=== PATIENT | female | born 1990 | race Caucasian/White ===

== ENCOUNTER 2018-11-23 01:33 | Inpatient (IN) | payer BC, OTHER ==
[~2018-11-23] VITALS: Ht 170.2 cm; Wt 79.9 kg
[2018-11-23] VITALS (7 sets, daily range): BP systolic 95–131; BP diastolic 56–68
[~2018-11-23 01:33] MED LIST: IBUP-1223 PO; OXYC-302 PO
[2018-11-23] MEDS ORDERED: OXYTOCIN 30U/ 0.9% NaCL 500ML 500 ML ONE (01:42)
[2018-11-23 02:11] LABS: MEAN CORPUSCULAR HEMOGLOBIN 28.2 pg (27.0-34.8); MEAN CORPUSCULAR HGB CONC 32.9 g/dL (32.4-35.8); MEAN CORPUSCULAR VOLUME 85.7 fL (80-100); MEAN PLATELET VOLUME 9.5 fL (7.4-10.4); PLATELET COUNT 225 x10^3/uL (130-400); RED BLOOD COUNT 4.27 x10^6/uL (3.82-5.3); RED CELL DISTRIBUTION WIDTH 15.5 % (9.6-15.2)
[2018-11-23 02:17] LABS: AMPHETAMINE SCREEN, URINE Negative (Negative); BARBITURATE SCREEN, URINE Negative (Negative); BENZODIAZEPINE SCREEN, URINE Negative (Negative); CANNABINOID SCREEN, URINE Negative (Negative); COCAINE SCREEN, URINE Negative (Negative); METHADONE SCREEN, URINE Negative (Negative); OPIATE SCREEN, URINE Negative (Negative)
[2018-11-23] MEDS ORDERED: MEPERIDINE/PF 100 MG/ML ONE (02:21)
[2018-11-23 02:29] LABS: BASOPHILS # (AUTO) 0.06 x10^3/uL (0-0.1); BASOPHILS % (AUTO) 0 % (0-1); EOSINOPHILS # (AUTO) 0.01 x10^3/uL (0-0.4); EOSINOPHILS % (AUTO) 0 % (1-7); LYMPHOCYTES # (AUTO) 1.58 x10^3/uL (1-3.4); LYMPHOCYTES % (AUTO) 6 % (22-44); MD SCAN; MONOCYTES # (AUTO) 0.66 x10^3/uL (0.2-0.8); MONOCYTES % (AUTO) 3 % (2-9); NEUTROPHILS # (AUTO) 23.48 x10^3/uL (1.8-6.8); NEUTROPHILS % (AUTO) 91 % (42-75)
[2018-11-23 02:36] LABS: INTERNATIONAL NORMALIZED RATIO 0.94 (0.93-1.1); PROTHROMBIN TIME 9.9 Seconds (9.6-11.5)
[2018-11-23] MEDS ORDERED: FENTANYL PF 100 MCG/2ML ONE ×2 (02:44→03:21)
[2018-11-23] MEDS ORDERED: MIDAZOLAM 1 MG/ML, 2ML ONE (02:44)
[2018-11-23] MEDS ORDERED: LIDOCAINE-MPF 2% ,5ML ONE (02:44)
[2018-11-23] MEDS ORDERED: SUCCINYLCHOLINE 20 MG/ML, 10ML ONE (02:44)
[2018-11-23] MEDS ORDERED: PROPOFOL 10 MG/ML, 20ML ONE (02:44)
[2018-11-23] MEDS ORDERED: ROCURONIUM 10MG/ML,5ML ONE (02:45)
[2018-11-23] MEDS ORDERED: METOCLOPRAMIDE 5 MG/ML, 2ML ONE ×2 (02:48→02:52)
[2018-11-23] MEDS ORDERED: DEXAMETHASONE 4 MG/ML, 1ML ONE ×2 (02:48)
[2018-11-23] MEDS ORDERED: ONDANSETRON 2MG/ML, 2ML ONE (02:48)
[2018-11-23] MEDS ORDERED: METHYLERGONOVINE 0.2 MG/ML IM ONE (02:51)
[2018-11-23] MEDS ORDERED: OXYTOCIN 10 UNITS/ML, 1ML ONE (02:52)
[2018-11-23] MEDS ORDERED: MEPERIDINE/PF 100 MG/ML IM PRN (03:00)
[2018-11-23] MEDS ORDERED: PHENYLEPHRINE 10 MG/ML ONE (03:04)
[2018-11-23] MEDS ORDERED: CEFAZOLIN 1,000 MG ONE ×2 (03:06)
[2018-11-23] MEDS ORDERED: OXYTOCIN 30U/ 0.9% NaCL 500ML 500 ML IV SCH (03:36)
[2018-11-23] MEDS ORDERED: OXYcodone 5 MG/5 ML ORAL.SOL UDC PO PRN (04:00)
[2018-11-23] MEDS ORDERED: DIPHENHYDRAMINE 50 MG/ML, 1ML IVPush PRN (04:00)
[2018-11-23] MEDS ORDERED: PROMETHAZINE 25 MG/ML, 1ML IV PRN (04:00)
[2018-11-23] MEDS ORDERED: IBUPROFEN 600 MG TABLET PO PRN (04:00)
[2018-11-23] MEDS ORDERED: MORPHINE SULFATE 4 MG/ML, 1ML IVPush PRN (04:00)
[2018-11-23] MEDS ORDERED: HYDROcodone/APAP 5/325 TABLET PO PRN ×2 (04:00)
[2018-11-23] MEDS ORDERED: DOCUSATE 100 MG CAPSULE PO PRN (04:00)
[2018-11-23] MEDS ORDERED: ONDANSETRON 2MG/ML, 2ML IV PRN ×2 (04:00)
[2018-11-23] MEDS ORDERED: EPHEDRINE 50 MG/ML, 1ML IVPush PRN (04:00)
[2018-11-23] MEDS ORDERED: FENTANYL PF 100 MCG/2ML IV PRN (04:00)
[2018-11-23] MEDS ORDERED: METOCLOPRAMIDE 5 MG/ML, 2ML IV PRN (04:00)
[2018-11-23] MEDS ORDERED: ACETAMINOPHEN 325 MG TABLET PO PRN (04:00)
[2018-11-23] MEDS ORDERED: CARBOPROST TROMETHAMINE 250 MCG/ML, 1ML IM PRN (04:00)
[2018-11-23] MEDS ORDERED: METHYLERGONOVINE 0.2 MG/ML IM PRN (04:00)
[2018-11-23 04:24] LABS: INTERNATIONAL NORMALIZED RATIO 0.99 (0.93-1.1); PROTHROMBIN TIME 10.4 Seconds (9.6-11.5)
[2018-11-23 04:39] LABS: MEAN CORPUSCULAR HEMOGLOBIN 27.9 pg (27.0-34.8); MEAN CORPUSCULAR HGB CONC 32.4 g/dL (32.4-35.8); MEAN CORPUSCULAR VOLUME 86.2 fL (80-100); MEAN PLATELET VOLUME 9.9 fL (7.4-10.4); PLATELET COUNT 183 x10^3/uL (130-400); RED BLOOD COUNT 3.29 x10^6/uL (3.82-5.3); RED CELL DISTRIBUTION WIDTH 15.5 % (9.6-15.2)
[2018-11-23 05:45] LABS: BASOPHILS # (AUTO) 0.01 x10^3/uL (0-0.1); BASOPHILS % (AUTO) 0 % (0-1); EOSINOPHILS # (AUTO) 0.01 x10^3/uL (0-0.4); EOSINOPHILS % (AUTO) 0 % (1-7); LYMPHOCYTES # (AUTO) 1.73 x10^3/uL (1-3.4); LYMPHOCYTES % (AUTO) 7 % (22-44); MD SCAN; MONOCYTES # (AUTO) 0.57 x10^3/uL (0.2-0.8); MONOCYTES % (AUTO) 2 % (2-9); NEUTROPHILS % (AUTO) 91 % (42-75)
[2018-11-23] MEDS ORDERED: CEFAZOLIN PMX 1GM/50ML 50 ML ONE (07:26)
[2018-11-23] MEDS: CEFAZOLIN PMX 1GM/50ML 50 ML IV SCH ×3 (07:53→21:56)
[2018-11-23 07:57] LABS: MEAN CORPUSCULAR HEMOGLOBIN 27.4 pg (27.0-34.8); MEAN CORPUSCULAR HGB CONC 32.2 g/dL (32.4-35.8); MEAN CORPUSCULAR VOLUME 85.1 fL (80-100); MEAN PLATELET VOLUME 9.1 fL (7.4-10.4); PLATELET COUNT 164 x10^3/uL (130-400); RED BLOOD COUNT 2.82 x10^6/uL (3.82-5.3); RED CELL DISTRIBUTION WIDTH 15.3 % (9.6-15.2)
[2018-11-23 08:06] LABS: BASOPHILS # (AUTO) 0.02 x10^3/uL (0-0.1); BASOPHILS % (AUTO) 0 % (0-1); EOSINOPHILS % (AUTO) 0 % (1-7); LYMPHOCYTES # (AUTO) 1.32 x10^3/uL (1-3.4); LYMPHOCYTES % (AUTO) 6 % (22-44); MD SCAN; MONOCYTES # (AUTO) 0.28 x10^3/uL (0.2-0.8); MONOCYTES % (AUTO) 1 % (2-9); NEUTROPHILS # (AUTO) 19.74 x10^3/uL (1.8-6.8); NEUTROPHILS % (AUTO) 92 % (42-75)
[2018-11-23] MEDS: PRENATAL VIT/IRON/FA 1 EACH TABLET PO SCH (09:00)
[2018-11-23] MEDS ORDERED: CEFAZOLIN 1,000 MG IM SCH (09:00)
[2018-11-23 14:46] LABS: MEAN CORPUSCULAR HEMOGLOBIN 27.4 pg (27.0-34.8); MEAN CORPUSCULAR HGB CONC 31.9 g/dL (32.4-35.8); MEAN CORPUSCULAR VOLUME 85.8 fL (80-100); PLATELET COUNT 161 x10^3/uL (130-400); RED BLOOD COUNT 2.48 x10^6/uL (3.82-5.3); RED CELL DISTRIBUTION WIDTH 15.5 % (9.6-15.2)
[2018-11-23 14:47] LABS: MD YES
[2018-11-23 15:47] LABS: BAND#(MANUAL) 0.94 x10^3/uL; BANDS%(MANUAL) 5 % (0-7); LYMPH#(MANUAL) 1.32 x10^3/uL (1-3.4); LYMPHS% (MANUAL) 7 % (22-44); MONOS#(MANUAL) 0.56 x10^3/uL (0.3-2.7); MONOS% (MANUAL) 3 % (2-9); SEG#(MANUAL) 15.98 x10^3/uL (1.8-6.8); SEGS% (MANUAL) 85 % (42-75)
[2018-11-23 15:48] LABS: <RBC MORPHOLOGY> NORMAL
[2018-11-23 15:49] LABS: <PLATELET ESTIMATE> ADEQUATE; <PLT MORPHOLOGY> NORMAL PLT MORPH; ANISOCYTOSIS 1+; POLYCHROMASIA 1+; ROULEAUX 1+
[2018-11-23 19:03] LABS: MD YES; MEAN CORPUSCULAR HEMOGLOBIN 28.8 pg (27.0-34.8); MEAN CORPUSCULAR HGB CONC 33.1 g/dL (32.4-35.8); MEAN CORPUSCULAR VOLUME 86.8 fL (80-100); MEAN PLATELET VOLUME 9.4 fL (7.4-10.4); PLATELET COUNT 168 x10^3/uL (130-400); RED BLOOD COUNT 2.38 x10^6/uL (3.82-5.3)
[2018-11-23 19:26] LABS: BAND#(MANUAL) 0.54 x10^3/uL; BANDS%(MANUAL) 3 % (0-7); LYMPH#(MANUAL) 2.17 x10^3/uL (1-3.4); LYMPHS% (MANUAL) 12 % (22-44); MONOS#(MANUAL) 0.91 x10^3/uL (0.3-2.7); MONOS% (MANUAL) 5 % (2-9); SEG#(MANUAL) 14.48 x10^3/uL (1.8-6.8); SEGS% (MANUAL) 80 % (42-75)
[2018-11-23 19:29] LABS: <PLATELET ESTIMATE> ADEQUATE; <PLT MORPHOLOGY> NORMAL PLT MORPH; ANISOCYTOSIS 1+; POLYCHROMASIA 1+
[2018-11-24] MEDS: CEFAZOLIN PMX 1GM/50ML 50 ML IV SCH ×2 (04:04→05:00)
[2018-11-24 04:23] LABS: MEAN CORPUSCULAR HEMOGLOBIN 28.4 pg (27.0-34.8); MEAN CORPUSCULAR HGB CONC 32.9 g/dL (32.4-35.8); MEAN CORPUSCULAR VOLUME 86.4 fL (80-100); MEAN PLATELET VOLUME 8.9 fL (7.4-10.4); PLATELET COUNT 142 x10^3/uL (130-400); RED BLOOD COUNT 2.86 x10^6/uL (3.82-5.3); RED CELL DISTRIBUTION WIDTH 15.6 % (9.6-15.2)
[2018-11-24 05:56] LABS: BASOPHILS # (AUTO) 0.18 x10^3/uL (0-0.1); BASOPHILS % (AUTO) 1 % (0-1); EOSINOPHILS # (AUTO) 0.03 x10^3/uL (0-0.4); EOSINOPHILS % (AUTO) 0 % (1-7); LYMPHOCYTES # (AUTO) 2.79 x10^3/uL (1-3.4); LYMPHOCYTES % (AUTO) 17 % (22-44); MD SCAN; MONOCYTES # (AUTO) 1.12 x10^3/uL (0.2-0.8); MONOCYTES % (AUTO) 7 % (2-9); NEUTROPHILS # (AUTO) 12.51 x10^3/uL (1.8-6.8); NEUTROPHILS % (AUTO) 75 % (42-75)
[2018-11-24 07:33] VITALS: BP 119/72
[2018-11-24] MEDS ORDERED: PRENATAL VIT/IRON/FA 1 EACH TABLET ONE (08:38)
[2018-11-24] MEDS: PRENATAL VIT/IRON/FA 1 EACH TABLET PO SCH (08:39)
== END 2018-11-24 10:55 | disposition home or self-care (01) | DRG 769 ==
LOC: LDIP 01:33 → 2NE 05:18
PROVIDERS: ADMIT Obstetrics & Gynecology Female Pelvic Medicine and Reconstructive Surgery; ATTEND Obstetrics & Gynecology Female Pelvic Medicine and Reconstructive Surgery
PROC: 10D17Z9 Manual Extraction of Products of Conception, Retained, Via Natural or Artificial Opening (ICD-10-PCS; principal; 2018-11-23)
PROC: 0W3R7ZZ Control Bleeding in Genitourinary Tract, Via Natural or Artificial Opening (ICD-10-PCS; 2018-11-23)
PROC: 30233N1 Transfusion of Nonautologous Red Blood Cells into Peripheral Vein, Percutaneous Approach (ICD-10-PCS; 2018-11-23)
DX: O72.1 Other immediate postpartum hemorrhage (principal); Z88.0 Allergy status to penicillin
CPT/HCPCS: 36415; J3490; 36430; 80307; 85025; 85384; 85610; 85730; 86850; 86900; 86923; 88305; G0378; J0690; J1100; J2250; J2405; J2704; J3010; J0330; J2175; J2210; J2370; J2590; J2765; P9016